=== PATIENT | female | born 1950 | race American Indian/Alaskan Native ===

== ENCOUNTER 2018-06-27 16:56 | Emergency (ER) | payer BC, MEDICARE ==
[2018-06-27 17:30] VITALS: TEMP 99.6
[2018-06-27] MEDS ORDERED: Iohexol 350 MG/100 ML VIAL ONE (19:00)
--- NOTE | 2018-06-27 19:01 | ED PDOC ---
Arrival/HPI - General Chief Complaint: Female Genitourinary Time Seen by Provider: 06/27/18 18:06 Historian: Patient - History of Present Illness Narrative History of Present Illness (Text): 06/27/18 18:58 67-year-old female presents today with a 3 week history of worsening lower abdominal pain. Patient states initially the patient started in the lower abdomen/pelvis. Patient initially described the pain as a cramping sensation. Patient states recently the pain has worsened until today the pain became severe. Patient describes the pain as sharp and describes a bloating sensation. Patient states she had very small bowel movement today. She denies nausea vomiting or diarrhea. She denies chest pain or shortness of breath. Patient denies urinary symptoms. No bladder or bowel incontinence. Patient denies back pain. No other complaints Time/Duration: > week Symptom Onset: Gradual Symptom Course: Worsening Quality: Stabbing, Cramping Severity Level: 4, 6 Past Medical History - Provider Review Nursing Documentation Reviewed: Yes - Travel History Have you recently traveled outside [place] w/in the past 3 mons?: No - Cardiac Hx Cardiac Disorders: Yes Hx Hypertension: Yes - Pulmonary Hx Respiratory Disorders: No - Neurological Hx Neurological Disorder: No - HEENT Hx HEENT Disorder: Yes Hx Glaucoma: Yes - Renal Hx Renal Disorder: No - Endocrine/Metabolic Hx Endocrine Disorders: No - Hematological/Oncological Hx Blood Disorders: No - Integumentary Hx Dermatological Disorder: No - Musculoskeletal/Rheumatological Hx Musculoskeletal Disorders: No - Gastrointestinal Hx Gastrointestinal Disorders: Yes Hx Gall Bladder Disease: Yes - Genitourinary/Gynecological Hx Genitourinary Disorders: No - Psychiatric Hx Psychophysiologic Disorder: No Hx Substance Use: No - Surgical History Hx Cholecystectomy: Yes Family/Social History - Physician Review Nursing Documentation Reviewed: Yes Family/Social History: Unknown Family HX Smoking Status: Never Smoked Hx Alcohol Use: Yes Frequency of alcohol use: Socially Hx Substance Use: No Allergies/Home Meds Allergies/Adverse Reactions: Allergies No Known Allergies Allergy (Verified 06/27/18 17:24) Home Medications: Home Meds Medication Instructions Recorded Confirmed Travoprost [Travatan Z] 1 drop BOTHEYES HS 06/27/18 06/27/18 amLODIPine [Norvasc] 10 mg PO DAILY 06/27/18 06/27/18 Review of Systems - Review of Systems Constitutional: absent: Fatigue, Fevers Respiratory: absent: SOB, Cough Cardiovascular: absent: Chest Pain, Palpitations Gastrointestinal: Abdominal Pain. absent: Constipation, Diarrhea, Nausea, Vomiting Genitourinary Female: absent: Dysuria, Frequency, Hematuria, Vaginal Bleeding, Vaginal Discharge Musculoskeletal: absent: Arthralgias, Back Pain, Neck Pain Skin: absent: Rash, Pruritis Neurological: absent: Headache, Dizziness Psychiatric: absent: Anxiety, Depression Physical Exam Vital Signs Reviewed: Yes Vital Signs Temp Pulse Resp BP Pulse Ox 06/27/18 17:26 99.6 F 90 16 149/89 98 Temperature: Afebrile Blood Pressure: Normal Pulse: Regular Respiratory Rate: Normal Appearance: Positive for: Well-Appearing, Non-Toxic, Comfortable Pain Distress: None Mental Status: Positive for: Alert and Oriented X 3 - Systems Exam Head: Present: Atraumatic Mouth: Present: Moist Mucous Membranes Neck: Present: Normal Range of Motion Respiratory/Chest: Present: Clear to Auscultation, Good Air Exchange. No: Respiratory Distress, Accessory Muscle Use Cardiovascular: Present: Regular Rate and Rhythm, Normal S1, S2. No: Murmurs Abdomen: Present: Tenderness (+ diffuse lower abdominal tenderness. ), Guarding. No: Distention, Peritoneal Signs, Rebound Back: Present: Normal Inspection. No: Midline Tenderness, Paraspinal Tenderness Neurological: Present: GCS=15, Speech Normal Skin: Present: Warm, Dry, Normal Color. No: Rashes Psychiatric: Present: Alert, Oriented x 3 Medical Decision Making ED Course and Treatment: 06/27/18 19:00 Patient is nontoxic well appearing with stable vital signs presenting with lower abdominal pain CBC : wbc: 11.1 CMP: wnl Urinalysis trace leukocytes CT: FINDINGS: Lung bases: The visualized portions of the lung bases are normal. ABDOMEN: Liver: Unremarkable. No mass. Gallbladder and bile ducts: There has been a cholecystectomy. Pancreas: Unremarkable. No mass. No ductal dilation. Spleen: Unremarkable. No splenomegaly. Adrenals: Unremarkable. No mass. Kidneys and ureters: A simple cyst is noted within the left kidney. A small nonobstructing stone within the left kidney. Kidneys otherwise show no significant abnormalities. Stomach and bowel: There is a segment of wall thickening at the junction of the sigmoid and descending colon, consistent with mild acute diverticulitis. There is mild pericolonic inflammatory stranding. Mild diverticulosis is present in the sigmoid and descending colon. No obstruction. PELVIS: Appendix: No findings to suggest acute appendicitis. Bladder: Unremarkable. No mass. Reproductive: Large fibroid with calcification 6.7 cm. ABDOMEN and PELVIS: Intraperitoneal space: Unremarkable. No free air. No significant fluid collection. Bones/joints: No acute fracture. No dislocation. Soft tissues: Bilateral fat-containing inguinal hernias are present. Vasculature: Unremarkable. No abdominal aortic aneurysm. Lymph nodes: Unremarkable. No enlarged lymph nodes. IMPRESSION: 1. Acute sigmoid diverticulitis without complications. 2. Large uterine fibroid. 3. Incidental and other non-acute findings are described above. Patient reassessment:pt non toxic well appearing. pt was started on cipro and flagyl for diverticulitis. pt in no distress. vitals stable. refused medications for pain. Discussed all results with patient in depth. advised f/u with PMD tomorrow. advised immediate return if symptoms worsen,persist or if new symptoms develop. discussed risk of perforation and stressed immediate return if there are any changes in pain/symptoms. case was discussed with dr. bianca scanlon in depth; pt is to call her office tomorrow to schedule appointment. Patient verbalizes understanding of discharge instructions and need for immediate followup. all aspects of this case were discussed the attending of record. Impression: Abdominal pain, diverticulitis, fibroid Motrin every 6 hours as needed for pain increase fluids Cipro one tablet twice daily. x10 days Flagyl one tablet three times daily x10 days Follow up with primary care physician tomorrow. Return immediately if symptoms worsen persist or if new symptoms develop: High fevers, increasing pain, vomiting, diarrhea or any other concerning symptoms develop - Lab Interpretations Lab Results: 06/27/18 18:57 06/27/18 18:57 Lab Results 06/27/18 18:59: Urine Color Light yellow, Urine Appearance Clear, Urine pH 6.0, Ur Specific [place] 1.010, Urine Protein Negative, Urine Glucose (UA) Negative, Urine Ketones Negative, Urine Blood Negative, Urine Nitrate Negative, Urine Bilirubin Negative, Urine Urobilinogen 0.2, Ur Leukocyte Esterase Small H, Urine RBC 0 - 2, Urine WBC 0 - 2, Ur Epithelial Cells 0 - 2, Urine Bacteria Few 06/27/18 18:57: WBC 11.8 H, RBC 4.32, Hgb 13.6, Hct 40.4, MCV 93.5, MCH 31.5, MCHC 33.7, RDW 14.5, Plt Count 242, MPV 10.2, Gran % 63.1, Lymph % (Auto) 28.5, [place] % (Auto) 7.0 H, Eos % (Auto) 1.3 L, Baso % (Auto) 0.1, Gran # 7.47 H, Lymph # (Auto) 3.4, [place] # (Auto) 0.8 H, Eos # (Auto) 0.2, Baso # (Auto) 0.01 06/27/18 18:57: Sodium 144, Potassium 4.1, Chloride 107, Carbon Dioxide 24, Anion Gap 18, BUN 14, Creatinine 1.2, Est GFR ( Amer) 54, Est GFR (Non- Af Amer) 45, Random Glucose 95, Calcium 9.9, Total Bilirubin 0.5, AST 21, ALT 36 , Alkaline Phosphatase 107, Total Protein 8.1, Albumin 4.5, Globulin 3.6, Albumin/Globulin Ratio 1.2 - RAD Interpretation Radiology Orders: 06/27/18 18:22 ABD & PELVIS IV CONTRAST ONLY [CT] Stat - Medication Orders Current Medication Orders: Discontinued Medications Ciprofloxacin (Cipro) 500 mg PO ONCE STA PRN Reason: Protocol Stop: 06/27/18 21:11 Metronidazole (Flagyl) 500 mg PO STAT STA PRN Reason: Protocol Stop: 06/27/18 21:11 Disposition/Present on Arrival - Present on Arrival Any Indicators Present on Arrival: No History of DVT/PE: No History of Uncontrolled Diabetes: No Urinary Catheter: No History of Decub. Ulcer: No History Surgical Site Infection Following: None - Disposition Have Diagnosis and Disposition been Completed?: Yes Diagnosis: Diverticulitis, Fibroid Disposition: HOME/ ROUTINE Disposition Time: 21:14 Patient Plan: Discharge Patient Problems: Current Active Problems Problem Status Onset Diverticulitis Acute Condition: GOOD Discharge Instructions (ExitCare): Diverticulitis (DC) Additional Instructions: Motrin every 6 hours as needed for pain increase fluids Cipro one tablet twice daily. x10 days Flagyl one tablet three times daily x10 days Follow up with primary care physician tomorrow. Return immediately if symptoms worsen persist or if new symptoms develop: High fevers, increasing pain, vomiting, diarrhea or any other concerning symptoms develop Prescriptions: Ciprofloxacin [Cipro] 500 mg PO BID #20 tab metroNIDAZOLE [Flagyl] 500 mg PO TID #30 tab Referrals: Bianca Scanlon MD [Primary Care Provider] - Follow up with primary Kenrick Cano MD [Staff Provider] - Follow up with primary Forms: [employer] (Samoan), WORK NOTE
[2018-06-27 19:16] LABS: URINE BILIRUBIN NEGATIVE (NEGATIVE); URINE BLOOD NEGATIVE (NEGATIVE); URINE GLUCOSE (UA) NEGATIVE (NEGATIVE); URINE LEUKOCYTE ESTERASE SMALL Leu/uL (NEGATIVE); URINE PROTEIN NEGATIVE mg/dL (<30 mg/dL); URINE UROBILINOGEN 0.2 E.U./dL (<1 E.U./dL)
[2018-06-27 19:16] LABS: BASO # 0.01 K/mm3 (0.0-2.0); BASO % 0.1 % (0.0-3.0); EOS # 0.2 (0.0-0.7); EOS % 1.3 % (1.5-5.0); GRAN # 7.47 (1.4-6.5); GRAN % 63.1 % (50.0-68.0); HEMOGLOBIN 13.6 g/dL (12.0-16.0); LYMPH # 3.4 (1.2-3.4); LYMPH % 28.5 % (22.0-35.0); MEAN CELL VOLUME 93.5 fl (80.0-105.0); MEAN CORPUSCULAR HEMOGLOBIN 31.5 pg (25.0-35.0); MEAN CORPUSCULAR HGB CONC 33.7 g/dl (31.0-37.0); MEAN PLATELET VOLUME 10.2 fl (7.0-11.0); MONO # 0.8 (0.1-0.6); RBC 4.32 10^6/uL (3.5-6.1); RED CELL DISTRIBUTION WIDTH 14.5 % (11.5-14.5); WHITE BLOOD COUNT 11.8 10^3/ul (4.5-11.0)
[2018-06-27 19:18] LABS: ALB/GLOB RATIO 1.2 (1.1-1.8); ALBUMIN 4.5 g/dL (3.0-4.8); CALCIUM 9.9 mg/dL (8.4-10.5)
[2018-06-27 19:21] LABS: URINE APPEARANCE CLEAR (CLEAR); URINE COLOR LIGHT YELLOW (YELLOW)
[2018-06-27 19:38] LABS: URINE BACTERIA FEW (NEG); URINE EPITHELIAL CELLS 0 - 2 /hpf (0-5); URINE RBC 0 - 2 /hpf (0-2); URINE WBC 0 - 2 /hpf (0-6)
[2018-06-27 21:17] VITALS: BP 147/83; PULSE 99; RESP 18; O2SAT 99
--- NOTE | 2018-06-28 10:36 | CT ---
Date of service: 06/27/2018 PROCEDURE: CT Abdomen and Pelvis with contrast HISTORY: abd pain COMPARISON: None. TECHNIQUE: Contrast dose: 100 cc of Omni 350 Radiation dose: Total exam DLP = 758 mGy-cm. This CT exam was performed using one or more of the following dose reduction techniques: Automated exposure control, adjustment of the mA and/or kV according to patient size, and/or use of iterative reconstruction technique. FINDINGS: LOWER THORAX: Unremarkable. LIVER: Unremarkable. No gross lesion or ductal dilatation. GALLBLADDER AND BILE DUCTS: Gallbladder removed PANCREAS: Unremarkable. No gross lesion or ductal dilatation. SPLEEN: Unremarkable. ADRENALS: Unremarkable. No mass. KIDNEYS AND URETERS: Unremarkable. No hydronephrosis. No solid mass. VASCULATURE: Unremarkable. No aortic aneurysm. BOWEL: Inflammatory changes are seen in the sigmoid colon consistent with acute diverticulitis. There is no evidence of abscess formation or free air. APPENDIX: Normal appendix. PERITONEUM: Unremarkable. No free fluid. No free air. LYMPH NODES: Unremarkable. No enlarged lymph nodes. BLADDER: Unremarkable. REPRODUCTIVE: Calcified fibroids in the uterus. The uterus measures 6.7 x 7 cm BONES: No acute fracture. OTHER FINDINGS: None. IMPRESSION: Mild acute diverticulitis of the sigmoid colon
== END 2018-06-27 21:30 | disposition home or self-care (01) ==
LOC: ED 16:56
DX: K57.32 Diverticulitis of large intestine without perforation or abscess without bleeding (principal); D25.9 Leiomyoma of uterus, unspecified; I10 Essential (primary) hypertension
CPT/HCPCS: 74177; 80053; 81001; 85025; 87086; 99284; Q9967